=== PATIENT | female | born 1995 | race Caucasian/White ===

== ENCOUNTER 2017-06-25 13:21 | Outpatient (CLI) | payer BC, MEDICAID ==
[~2017-06-25] VITALS: Ht 154.9 cm; Wt 97.7 kg
[2017-06-25 13:48] VITALS: BP 140/96; PULSE 83; TEMP 98.3
[2017-06-25 13:56] LABS: BASO % 0.1 % (0.0-2.0); EOS # 0.1 (0.0-0.7); EOS % 0.6 % (0-4.0); GRAN # 6.5 (1.4-6.5); GRAN % 61.4 % (42.2-75.2); LYMPH # 2.8 (1.2-3.4); LYMPH % 26.6 % (20.0-51.0); MEAN CELL VOLUME 85 fl (80.0-95.0); MEAN CORPUSCULAR HGB CONC 34 g/dl (33.0-37.0); MEAN PLATELET VOLUME 10.2 fl (7.4-10.4); MONO # 1.1 (0.1-0.6); MONO % 10.4 % (1.7-9.3); PLATELET COUNT 232 K/mm3 (130-400); RED BLOOD COUNT 3.68 M/mm3 (4.10-5.30); REDCELL DISTRIBUTION WIDTH-CV 13.7 % (11.5-14.5)
[2017-06-25 13:57] LABS: HEMATOCRIT 31.2 % (35.0-45.0); HEMOGLOBIN 10.7 g/dl (12.0-15.0); MEAN CORPUSCULAR HEMOGLOBIN 29 pg (26.0-32.0)
[2017-06-25 14:06] LABS: ALBUMIN 3.3 gm/dL (3.5-5.0); BILIRUBIN,TOTAL 0.2 mg/dL (0.0-1.0); CALCIUM 9.2 mg/dL (8.4-10.2); CREATININE, serum 0.66 mg/dL (0.52-1.25); POTASSIUM 4.1 mmol/L (3.4-5.0)
[2017-06-25] MEDS ORDERED: PRENATAL MVI (14:07)
[2017-06-25] MEDS ORDERED: TYLENOL 500MG500 MG PO (14:08)
[2017-06-25 14:30] VITALS: BP 140/95; PULSE 80
[2017-06-25 14:34] LABS: COLLECTION METHOD CLEAN CATCH
[2017-06-25 14:42] LABS: MUCOUS Present /lpf; PH 7 (5-8); URINE APPEARANCE Hazy; URINE BACTERIA Rare /hpf; URINE BILIRUBIN Negative (NEGATIVE); URINE BLOOD Negative (NEGATIVE); URINE COLOR Yellow; URINE GLUCOSE Negative (NEGATIVE); URINE KETONE Negative (NEGATIVE); URINE LEUKOCYTE ESTERASE 3+ (NEGATIVE); URINE NITRATE Negative (NEGATIVE); URINE PROTEIN(semi-quant) 2+ (NEGATIVE); URINE RBC 0-2 /hpf; URINE UROBILINOGEN Negative (NEGATIVE)
[2017-06-25 15:00] VITALS: BP 146/91; PULSE 79
[2017-06-25 15:30] VITALS: BP 148/89; PULSE 89
== END 2017-06-25 15:55 | disposition home or self-care (01) ==
LOC: LDRO 13:21
PROVIDERS: Obstetrics & Gynecology
DX: O36.8130 Decreased fetal movements, third trimester, not applicable or unspecified (principal); O99.89 Other specified diseases and conditions complicating pregnancy, childbirth and the puerperium; R03.0 Elevated blood-pressure reading, without diagnosis of hypertension; Z3A.36 36 weeks gestation of pregnancy

== ENCOUNTER → 2017-06-26 | Outpatient (CLI) | payer BC, MEDICAID ==
[~2017-06-26] MED LIST: MOTRIN 800800 MG/TAB PO; PERCOCET 325 MG1 TA2 PO; PRENATAL MVI; TYLENOL 500MG500 MG PO; VENTOLIN0.09 MG IH
[2017-06-27 09:46] LABS: CREATININE, serum 0.66 mg/dL (0.52-1.25)
[2017-06-27 09:49] LABS: URINE TOTAL VOLUME 1400 mL
[2017-06-27 10:13] LABS: URINE CREATININE CLEARANCE 1.9 mL/min (88-128)
[2017-06-27 10:59] LABS: URINE TOTAL VOLUME - 24 HRS 1400 mL/24 hr
== END ==
LOC: COL.LAB 18:58
PROVIDERS: Obstetrics & Gynecology
DX: O13.1 Gestational [pregnancy-induced] hypertension without significant proteinuria, first trimester (principal); Z3A.00 Weeks of gestation of pregnancy not specified

== ENCOUNTER 2017-06-28 11:30 | Inpatient (IN) | payer BC, MEDICAID ==
[2017-06-28] VITALS (46 sets, daily range): BP systolic 117–150; BP diastolic 68–103; PULSE 72–99; TEMP 97.8–98.8
[~2017-06-28] VITALS: Ht 154.9 cm; Wt 97.7 kg
[~2017-06-28 11:30] MED LIST changes: -MOTRIN 800800 MG/TAB PO; -PERCOCET 325 MG1 TA2 PO; -VENTOLIN0.09 MG IH
[2017-06-28] MEDS ORDERED: VENTOLIN0.09 MG IH (11:47)
[2017-06-28 12:53] LABS: COLLECTION METHOD CLEAN CATCH
[2017-06-28 13:01] LABS: PH 7 (5-8); URINE APPEARANCE Hazy; URINE BACTERIA None Seen /hpf; URINE BILIRUBIN Negative (NEGATIVE); URINE BLOOD Negative (NEGATIVE); URINE COLOR Yellow; URINE GLUCOSE Negative (NEGATIVE); URINE KETONE Negative (NEGATIVE); URINE LEUKOCYTE ESTERASE Negative (NEGATIVE); URINE NITRATE Negative (NEGATIVE); URINE PROTEIN(semi-quant) 2+ (NEGATIVE); URINE RBC 0-2 /hpf; URINE UROBILINOGEN Negative (NEGATIVE)
[2017-06-28 13:22] LABS: BASO % 0.2 % (0.0-2.0); EOS # 0.1 (0.0-0.7); EOS % 0.9 % (0-4.0); GRAN # 6.3 (1.4-6.5); GRAN % 59.9 % (42.2-75.2); HEMOGLOBIN 11.3 g/dl (12.0-15.0); LYMPH # 3.1 (1.2-3.4); MEAN CELL VOLUME 85 fl (80.0-95.0); MEAN CORPUSCULAR HEMOGLOBIN 29 pg (26.0-32.0); MEAN CORPUSCULAR HGB CONC 34 g/dl (33.0-37.0); MEAN PLATELET VOLUME 10.4 fl (7.4-10.4); PLATELET COUNT 228 K/mm3 (130-400); RED BLOOD COUNT 3.87 M/mm3 (4.10-5.30); REDCELL DISTRIBUTION WIDTH-CV 14.1 % (11.5-14.5)
[2017-06-28 13:31] LABS: ALANINE AMINOTRANSFERASE 26 U/L (9-52); ALBUMIN 3.1 gm/dL (3.5-5.0); ALKALINE PHOSPHATASE 191 U/L (50-136); ANION GAP 9 mmol/L (7-16); AST,SGOT 22 U/L (15-37); BILIRUBIN,TOTAL < 0.1 mg/dL (0.0-1.0); BLOOD UREA NITROGEN 12 mg/dL (7-17); CALCIUM 8.9 mg/dL (8.4-10.2); CARBON DIOXIDE 20 mmol/L (22-30); CHLORIDE 105 mmol/L (98-107); CREATININE, serum 0.61 mg/dL (0.52-1.25); GLUCOSE 70 mg/dL (74-106); POTASSIUM 4.3 mmol/L (3.4-5.0); SODIUM 134 mmol/L (137-145); TOTAL PROTEIN 6.6 gm/dL (6.4-8.2)
[2017-06-29] VITALS (57 sets, daily range): BP systolic 104–157; BP diastolic 60–97; PULSE 72–105; TEMP 98.1–98.8
[2017-06-29] MEDS ORDERED: MOTRIN 800800 MG/TAB PO (14:30)
[2017-06-29] MEDS ORDERED: PERCOCET 325 MG1 TA2 PO (14:30)
[2017-06-30] VITALS: BP 134/90; PULSE 93; TEMP 97.2
[2017-06-30 04:27] VITALS: BP 140/88; PULSE 103; TEMP 97.6
[2017-06-30 08:00] VITALS: BP 160/84; PULSE 84; TEMP 97.5
[2017-06-30 19:15] VITALS: BP 145/93; PULSE 96; TEMP 98.4
[2017-07-01 08:50] VITALS: BP 154/97; PULSE 82; TEMP 98.2
[2017-07-01 10:03] VITALS: BP 154/104; PULSE 91
[2017-07-01] MEDS ORDERED: PROCARDIA XL 3030 MG PO (10:11)
[2017-07-01 12:30] VITALS: BP 154/94; PULSE 100
[2017-07-01 16:30] VITALS: BP 154/94; PULSE 105; TEMP 98.5
[2017-07-01 20:15] VITALS: BP 151/95; PULSE 96; TEMP 98.2
[2017-07-02 09:00] VITALS: BP 146/91; PULSE 99; TEMP 98.2
[2017-07-02] MEDS ORDERED: PROCARDIA XL 3030 MG PO (11:21)
== END 2017-07-02 16:10 | disposition home or self-care (01) | DRG 766 ==
LOC: LDRO 11:30 → LDR 11:35 → LDRO 11:36 → LDR 11:37 → OB 11:37
PROVIDERS: Obstetrics & Gynecology
PROC: 10907ZC Drainage of Amniotic Fluid, Therapeutic from Products of Conception, Via Natural or Artificial Opening (ICD-10-PCS; 2017-06-28)
PROC: 3E033VJ Introduction of Other Hormone into Peripheral Vein, Percutaneous Approach (ICD-10-PCS; 2017-06-28)
PROC: 10D00Z1 Extraction of Products of Conception, Low, Open Approach (ICD-10-PCS; principal; 2017-06-29)
DX: O62.1 Secondary uterine inertia (principal); O76 Abnormality in fetal heart rate and rhythm complicating labor and delivery; O62.2 Other uterine inertia; O14.04 Mild to moderate pre-eclampsia, complicating childbirth; Z3A.37 37 weeks gestation of pregnancy; Z37.0 Single live birth; Z22.330 Carrier of Group B streptococcus; J45.909 Unspecified asthma, uncomplicated; O99.344 Other mental disorders complicating childbirth; F41.8 Other specified anxiety disorders
CPT/HCPCS: J0690; J1200; J1885; J2370; J2400; J2405; J2540; J2590; J3010; J7120

== ENCOUNTER 2020-02-15 18:58 | Emergency (ER) | payer SELFPAY ==
[~2020-02-15] VITALS: Ht 154.9 cm; Wt 80.9 kg
[~2020-02-15 18:58] MED LIST changes: +MOTRIN 800800 MG/TAB PO; +PERCOCET 325 MG1 TA2 PO; +PROCARDIA XL 3030 MG PO; +VENTOLIN0.09 MG IH
[2020-02-15 19:11] VITALS: TEMP 98.5
[2020-02-15 20:14] VITALS: BP 114/64; PULSE 75
[2020-02-16] MEDS ORDERED: PERCOCET 325 MG1 TA2 PO (20:15)
== END 2020-02-15 20:16 | disposition home or self-care (01) ==
LOC: COL.ER 18:58
DX: S61.214A Laceration without foreign body of right ring finger without damage to nail, initial encounter (principal); S61.216A Laceration without foreign body of right little finger without damage to nail, initial encounter; Z91.040 Latex allergy status; W26.0XXA Contact with knife, initial encounter; Y92.090 Kitchen in other non-institutional residence as the place of occurrence of the external cause

== ENCOUNTER 2020-02-16 18:24 | Emergency (ER) | payer SELFPAY ==
[~2020-02-16] VITALS: Ht 154.9 cm; Wt 80.9 kg
[2020-02-16] MEDS ORDERED: PERCOCET 325 MG1 TA2 PO (20:15)
[2020-02-16 20:19] VITALS: BP 118/74; PULSE 84; TEMP 97.9
== END 2020-02-16 20:21 | disposition home or self-care (01) ==
LOC: COL.ER 18:24
DX: S61.216A Laceration without foreign body of right little finger without damage to nail, initial encounter (principal); S61.214A Laceration without foreign body of right ring finger without damage to nail, initial encounter; Z91.040 Latex allergy status; Z79.1 Long term (current) use of non-steroidal anti-inflammatories (NSAID); X58.XXXA Exposure to other specified factors, initial encounter

== ENCOUNTER 2022-06-06 15:17 | Emergency (ER) | payer OTHER ==
[~2022-06-06] VITALS: Ht 154.9 cm; Wt 72.7 kg
[2022-06-06 15:28] VITALS: TEMP 98.3
[2022-06-06 17:10] LABS: BASO % 0.2 % (0.0-2.0); EOS % 0.4 % (0.0-4.0); GRAN # 4.5 K/mm3 (1.4-6.5); GRAN % 49.6 % (42.2-75.2); HEMATOCRIT 39.3 % (37.0-47.0); HEMOGLOBIN 13.9 g/dl (12.5-16.0); LYMPH # 3.7 K/mm3 (1.2-3.4); LYMPH % 41.1 % (20.0-51.0); MEAN CELL VOLUME 88 fl (80.0-100.0); MEAN CORPUSCULAR HEMOGLOBIN 31 pg (27-31); MEAN CORPUSCULAR HGB CONC 35 g/dl (33.0-37.0); MEAN PLATELET VOLUME 9.8 fl (7.4-10.4); MONO # 0.8 K/mm3 (0.1-0.6); MONO % 8.5 % (1.7-9.3); PLATELET COUNT 292 K/mm3 (130-400); RED BLOOD COUNT 4.48 M/mm3 (4.10-5.30); REDCELL DISTRIBUTION WIDTH-CV 12.3 % (11.5-14.5)
[2022-06-06 17:13] LABS: COLLECTION METHOD CLEAN CATCH
[2022-06-06 17:19] LABS: ALBUMIN 4.4 gm/dL (3.5-5.0); BILIRUBIN,TOTAL 0.4 mg/dL (0.2-1.2); C-REACTIVE PROTEIN 0.09 mg/dL (0.00-0.50); CALCIUM 9.4 mg/dL (8.4-10.2); CREATININE, serum 0.77 mg/dL (0.57-1.11); POTASSIUM 3.8 mmol/L (3.5-4.5); TOTAL PROTEIN 7.8 gm/dL (6.2-8.1)
[2022-06-06 17:25] LABS: MUCOUS Present (NOT PRESENT); URINE BACTERIA None Seen /hpf (NONE SEEN); URINE RBC 0-2 /hpf (0-2)
[2022-06-06 17:28] LABS: URINE APPEARANCE Hazy (CLEAR/HAZY); URINE BLOOD Negative (NEGATIVE); URINE COLOR Yellow (YELLOW); URINE GLUCOSE Negative (NEGATIVE); URINE KETONE 2+ (NEGATIVE); URINE NITRATE Negative (NEGATIVE); URINE PROTEIN(semi-quant) Negative (NEGATIVE); URINE UROBILINOGEN 0.2 (NEGATIVE)
[2022-06-06 20:19] VITALS: BP 110/73; PULSE 80
== END 2022-06-06 20:19 | disposition home or self-care (01) ==
LOC: COL.ER 15:17
PROVIDERS: Nurse Practitioner
DX: R10.11 Right upper quadrant pain (principal); R11.0 Nausea; F17.290 Nicotine dependence, other tobacco product, uncomplicated
CPT/HCPCS: J2270; J2405; J7030; Q9967

== ENCOUNTER → 2023-03-31 | Outpatient (CLI) | payer BC | LOC: COL.RAD 10:25 | DX: M25.511 Pain in right shoulder (principal); M25.512 Pain in left shoulder ==

== ENCOUNTER 2023-12-23 07:37 | Inpatient (IN) | payer BC ==
[~2023-12-23] VITALS: Wt 94.1 kg
[~2023-12-23 07:37] MED LIST changes: +ASPIRIN E.C. 8181 MG PO; +LR & Oxytocin 500 ML IV SCH; +LR 1,000 ML IV PRN; +LR 1,000 ML IV SCH; +Penicillin G Potassium 5,000,000 UNITS in NS 100 ML IV ONE
[2023-12-23] MEDS ORDERED: Penicillin G Potassium 2,500,000 UNITS in NS 100 ML IV SCH (10:15)
[2023-12-25] VITALS (58 sets, daily range): BP systolic 94–147; BP diastolic 50–90; PULSE 75–102; TEMP 97.4–99.1
[2023-12-25] MEDS ORDERED: LR 1,000 ML IV PRN (06:15)
[2023-12-25] MEDS ORDERED: LR 1,000 ML IV SCH ×2 (06:15→12:45)
[2023-12-25] MEDS ORDERED: LR & Oxytocin 500 ML IV SCH ×2 (06:15)
[2023-12-25] MEDS ORDERED: Penicillin G Potassium 5,000,000 UNITS in NS 100 ML IV ONE (06:15)
[2023-12-25] MEDS ORDERED: Penicillin G Potassium 2,500,000 UNITS in NS 100 ML IV SCH (06:15)
--- NOTE | 2023-12-25 06:52 | NUR ---
0630 PT ARRIVES ON UNIT FOR SCHEDULED IOL. PT DENIES LOF, VB, DFM, STRONG/REGULAR CTX OR ANY OTHER CHANGES/CONCERNS. PT REQUESTS TO START TO CYTOTEC ORALLY INSTEAD OF PITOCIN WHEN RN DISCUSSES POC WITH PT. RN STATES SHE WILL TALK TO DR VOSS TO SEE HIS THOUGHTS AFTER PT STATES SHE HAS NOT DISCUSSED THIS WITH HIM. PT STATES SHE IS WORRIED BECAUSE SHE WOULD LIKE TO GO WITHOUT AN EPIDURAL AND WANTS TO BE UP AND MOVING AND KNOWS THAT PITOCIN CONTRACTIONS "ARE ALOT MORE PAINFUL". RN REASSURES PT SHE WILL EXPRESS PT CONCERNS TO MD AND REPORT BACK WHAT HE THINKS. PT VERBALIZES UNDERSTANDING AND HAS NO QUESTIONS AT THIS TIME.
[2023-12-25 07:07] LABS: BASO % 0.1 % (0.0-2.0); EOS # 0.1 K/mm3 (0.0-0.7); EOS % 1.3 % (0.0-4.0); GRAN # 4.6 K/mm3 (1.4-6.5); GRAN % 53.7 % (42.2-75.2); HEMOGLOBIN 11.2 g/dl (12.5-16.0); LYMPH # 2.9 K/mm3 (1.2-3.4); LYMPH % 33.9 % (20.0-51.0); MEAN CELL VOLUME 92 fl (80.0-100.0); MEAN CORPUSCULAR HEMOGLOBIN 31 pg (27-31); MEAN CORPUSCULAR HGB CONC 34 g/dl (33.0-37.0); MEAN PLATELET VOLUME 10.7 fl (7.4-10.4); MONO # 0.9 K/mm3 (0.1-0.6); MONO % 10.2 % (1.7-9.3); PLATELET COUNT 188 K/mm3 (130-400); RED BLOOD COUNT 3.59 M/mm3 (4.10-5.30); REDCELL DISTRIBUTION WIDTH-CV 13.2 % (11.5-14.5)
[2023-12-25 07:08] LABS: HEMATOCRIT 33.1 % (37.0-47.0)
[2023-12-25 07:22] LABS: ALBUMIN 2.7 g/dL (3.5-5.0); BILIRUBIN,TOTAL 0.2 mg/dL (0.2-1.2); CREATININE, serum 0.7 mg/dL (0.57-1.11); POTASSIUM 3.7 mEq/L (3.5-4.5)
--- NOTE | 2023-12-25 07:41 | NUR ---
0700 RN EDUCATES PT ON CONTRAINDICATIONS OF CYTOTEC WHEN PT HAS HAD A PREVIOUS . RN EXPLAINS PITOCIN PROCESS/PROTOCOLS, WIRELESS MONITORING THAT MAY BE AN OPTION FOR PATIENT. PT VERBALIZES UNDERSTANDING AND VOICES ACCEPTANCE.
--- NOTE | 2023-12-25 07:42 | NUR ---
0720 RN CALLS MD TO UPDATE HIM ON PT ARRIVAL, PT CONCERNS WITH PITOCIN, PT VOICING WANTING TO USE CYTOTEC BUT RN EDUCATING PT ON WHY CYTOTEC IS CONTRAINDICATED IN THIS SCENARIO AND PT VERBALIZES UNDERSTANDING BUT WANTS TO SEE ABOUT OTHER OPTIONS. MD STATES PITOCIN IS THE MOST EFFECTIVE WAY TO INDUCE LABOR TODAY. 7047 RN RELAYS CONVERSATION WITH MD ABOUT USING PITOCIN. PT VERBALIZES UNDERSTANDING AND STATES SHE IS OK WITH USING PITOCIN TO INDUCE LABOR.
--- NOTE | 2023-12-25 08:37 | NUR ---
SHANIKA PACK BEDSIDE DISCUSSING POC WITH PT. USES BEDSIDE ULTRASOUND TO CONFIRM VERTEX POSITIONING.
--- NOTE | 2023-12-25 09:48 | NUR ---
PT BREATHING THRU CTX, LEANING OVER BED. RN ADJUSTING MONITORS
--- NOTE | 2023-12-25 09:53 | NUR ---
PT REMAINS LEANING OVER BED, BREATHING THRU CTX. PT DECLINES ANY PAIN INTERVENTION AT THIS TIME. RN ADJUSTING MONITORS NEEDED
--- NOTE | 2023-12-25 10:14 | NUR ---
1012 PT REQUESTING IV PAIN MEDICATION. SHANIKA PACK GIVES ORDER OVER PHONE FOR 50 MCG FENTANYL AT THIS TIME. RN MAGIVO.
[2023-12-25] MEDS ORDERED: fentaNYL 50 MCG/ML 2 ML VIAL IV ONE (10:15)
--- NOTE | 2023-12-25 10:45 | NUR ---
1020 RN BEDSIDE, SVE PERFORMED /-2, MEMBRANES STILL INTACT. SEE MAR
--- NOTE | 2023-12-25 10:45 | NUR ---
1040 PT REQUESTING EPIDURAL AT THIS TIME. BEHAVIORAL THERAPY COORDINATOR CALLED AND IVFB STARTED. PT STATES IV PAIN MEDICATION IS HELPING "TAKE THE EDGE OFF".
[2023-12-25] MEDS ORDERED: ROPivacaine PF 0.2% 200 ML IV ONE (11:00)
--- NOTE | 2023-12-25 11:57 | NUR ---
FIRER RETORT AND RN X 1 BEDSIDE DURING EPIDURAL. PT TOLERATED PROCEDURE WELL. 1106 FIRER RETORT BEDSIDE FOR EPIDURAL PLACEMENT, PT TO SIDE OF BED FOR EPIDURAL, RN STANDING IN FRONT OF PT FOR SUPPORT. 1110 EPIDURAL PLACEMENT 1116 TEST DOSE PERFORMED BY FIRER RETORT 1120 PT SEMI FOWLERS WITH RIGHT HIP WEDGE; POSITIONED BY RN RN ATTEMPTING TO HANDHOLD US MONITOR DURING PROCEDURE DUE TO MATERNAL POSITIONING
[2023-12-25] MEDS ORDERED: ePHEDrine 50 MG/10 ML VIAL IV PRN (12:45)
[2023-12-25] MEDS ORDERED: LR 500 ML IV PRN (12:45)
[2023-12-25] MEDS ORDERED: diphenhydrAMINE 25 MG CAP PO PRN (12:45)
[2023-12-25] MEDS ORDERED: Naloxone 0.4 MG/ML VIAL IV PRN (12:45)
[2023-12-25] MEDS ORDERED: Ondansetron 4 MG/2 ML VIAL IV PRN (12:45)
[2023-12-25] MEDS ORDERED: diphenhydrAMINE 50 MG/ML 1 ML VIAL IV PRN (12:45)
--- NOTE | 2023-12-25 13:32 | NUR ---
PT BREATHING THRU CONTRACTIONS, KELP GATHERER ON UNIT PREPARING TO COME IN TO ROOM TO PLACE EPIDURAL.
--- NOTE | 2023-12-25 13:36 | NUR ---
PT SEMI FOWLERS WITH HIP WEDGE, MONITORS ADJUSTED BY RN
--- NOTE | 2023-12-25 13:40 | NUR ---
SHANIKA PACK BEDSIDE, ASSESSING STRIP AND PERFORMING SVE
--- NOTE | 2023-12-25 14:16 | NUR ---
RN BEDSIDE REPOSITIONING PT AND ASSESSING FHTS/CTX PATTERN
--- NOTE | 2023-12-25 14:26 | NUR ---
SHANIKA PACK BEDSIDE ASSESSING PT
[2023-12-25 14:49] LABS: HIV 1/2 Antibodies Non-Reactive; HIV-1p24 Antigen Non-Reactive
--- NOTE | 2023-12-25 15:25 | NUR ---
PT VOMITING, REQUESTING NEW POSITION AND ZOFRAN. SEE MAR.
--- NOTE | 2023-12-25 15:27 | NUR ---
RN REMAINS BEDSIDE, ASSISTS WITH POSITIONING AND PERFORMS SVE
--- NOTE | 2023-12-25 16:22 | NUR ---
SEE PHYSICIAN NOTIFICATION
--- NOTE | 2023-12-25 17:11 | NUR ---
PT REPOSITIONED TO SEMI FOWLERS THEN REPOSITIONED BACK TO LEFT LATERAL DUE TO MATERNAL DISCOMFORT WELL VARIABLE DECELERATIONS. RN BEDSIDE ASSISTING PT WITH POSITION CHANGES. APPLE JUICE PROVIDED DUE TO LOWER BLOOD SUGAR
--- NOTE | 2023-12-25 18:25 | NUR ---
SHANIKA PACK BEDSIDE ASSESSING FHTS AND SVE.
--- NOTE | 2023-12-25 21:15 | NUR ---
FHT's with variables and early decels to 120's-130's.
--- NOTE | 2023-12-25 22:55 | NUR ---
SVE +1, PUSHING INSTRUCTIONS GIVEN.fHT'S WITH EARLY ONSET DECELERATIONS TO 130'S, RETRUNING TO BASELINE AFTER CTX COMPLETE.
--- NOTE | 2023-12-25 23:15 | NUR ---
Pushing. Pt "not sure if she's feeling contractions"
--- NOTE | 2023-12-25 23:30 | NUR ---
FHT's with deceleration to 120's then 110's with pushing. Continues in 110's for 4 min before returning to baseline 160's time from onset of decel to return to baseline 5 min.
--- NOTE | 2023-12-25 23:50 | NUR ---
Pt pushing well. Tam roger. FHT's with decels to 110's-120's with pushing
[2023-12-26] VITALS (13 sets, daily range): BP systolic 97–149; BP diastolic 49–102; PULSE 80–99; TEMP 97.6–99.4
--- NOTE | 2023-12-26 00:13 | NUR ---
FHT's with baseline 170's, decels to 120's with pushing. with peak of pushing effort. Dr Zhang called to come for delivery.
--- NOTE | 2023-12-26 00:15 | NUR ---
Charge nurse notifed of possible shoulder dystocia, into room for deliverry. Pt set up and prepped for delivery. [address] Zhang after reduction of nuchal cord x1.
--- NOTE | 2023-12-26 00:30 | NUR ---
Placenta delivers spont and intact with 3 vessell cord. Pitocin gtt to bolus rate.
--- NOTE | 2023-12-26 00:30 | NUR ---
Placenta delivers spont and intact with 3 vessell cord. Pitocin gtt to bolus rate. [address] Zhang reveals no lacerations. Pericare performed, ice pack to perineum, bed together.
[2023-12-26] MEDS ORDERED: Loratadine 10 MG TAB PO PRN (00:45)
[2023-12-26] MEDS ORDERED: Magnes Hydrox (MOM) 80 MG/ML 30 ML CUP PO PRN (00:45)
[2023-12-26] MEDS ORDERED: Acetaminophen 500 MG TAB PO SCH (02:00)
[2023-12-26] MEDS ORDERED: Measles/Mumps/Rubella Virus Vaccine Live w Diluent 0.5 ML VIAL SQ SCH (02:00)
[2023-12-26] MEDS ORDERED: Ibuprofen 600 MG TAB PO SCH (02:00)
[2023-12-26] MEDS ORDERED: oxyCODONE 5 MG TAB PO PRN (02:00)
[2023-12-26] MEDS ORDERED: Phenylephrine/Mineral Oil/Petrolatum 57 GM TUBE RC PRN (02:00)
[2023-12-26] MEDS ORDERED: Tdap Vaccine 0.5 ML SYRINGE IM SCH (02:00)
[2023-12-26] MEDS ORDERED: Witch Hazel 50% Pads Bulk TUB TP PRN (02:00)
[2023-12-26] MEDS ORDERED: Naloxone 0.4 MG/ML VIAL IV PRN (02:00)
[2023-12-26] MEDS ORDERED: Mag/Al Hydrox/Simeth Susp 30 ML CUP PO PRN (02:00)
--- NOTE | 2023-12-26 02:30 | NUR ---
IV to INT. Epidural catheter dc'd. Up to bathroom with 'Claudia Steady" voids good amount, performs own pericare. To pp room via claudia steady.
[2023-12-26] MEDS ORDERED: Sennosides/Docusate 8.6-50 MG TAB PO SCH (08:00)
[2023-12-26] MEDS ORDERED: TYLENOL 500MG500 MG PO (08:19)
[2023-12-26] MEDS ORDERED: IBU600 MG PO (08:19)
[2023-12-26] MEDS ORDERED: Prenatal Vitamins/Iron/FA TAB PO SCH (09:00)
--- NOTE | 2023-12-26 10:14 | NUR ---
Initial visit; Parents thanked Senior Water/Wastewater Engineer for offering Congratulationa and God's blessings for the of their son. Senior Water/Wastewater Engineer thanked family for choosing [facility].
[2023-12-26] MEDS ORDERED: traZODone 50 MG TAB PO PRN (21:00)
[2023-12-27 07:07] VITALS: BP 140/87; PULSE 71; TEMP 98.4
--- NOTE | 2023-12-27 16:20 | NUR ---
PT AND PT SPOUSE VERBALLY UNDERSTANDING OF DISCAHRGE ORDERS AND INFORMATION, PT SIGNED DISCHARGE PAPERWORK AND AMBULATORY OFF UNIT ESCOURTED BY GISSELLE
== END 2023-12-27 16:20 | disposition home or self-care (01) | DRG 560 ==
LOC: EDBD → OB 07:37 → LDR 12-25 06:14 → OB 12-25 13:35
PROVIDERS: ADMIT Obstetrics & Gynecology
PROC: 10E0XZZ Delivery of Products of Conception, External Approach (ICD-10-PCS; 2023-12-25)
PROC: 3E033VJ Introduction of Other Hormone into Peripheral Vein, Percutaneous Approach (ICD-10-PCS; principal; 2023-12-26)
DX: O14.04 Mild to moderate pre-eclampsia, complicating childbirth (principal); Z37.0 Single live birth; O99.824 Streptococcus B carrier state complicating childbirth; O24.420 Gestational diabetes mellitus in childbirth, diet controlled; O34.211 Maternal care for low transverse scar from previous cesarean delivery; Z3A.38 38 weeks gestation of pregnancy
CPT/HCPCS: J2405; J2540; J2590; J2795; J3010; J7120